=== PATIENT | female | born 1940 | race Caucasian/White ===

== ENCOUNTER 2016-09-16 16:19 | Inpatient (IN) ==
[2016-09-16] MEDS ORDERED: NS 1,000 ML IV SCH ×2 (16:30→22:39)
[2016-09-16] MEDS ORDERED: CLINDAMYCIN 900 MG/NS 900 MG/50 ML IVPB IV ONE (16:30)
[2016-09-16] MEDS ORDERED: VANCOMYCIN 1 GM/NS 1 GM/250 ML IVPB IV ONE (16:30)
[2016-09-16 18:33] LABS: MANUAL DIFF NEEDED? NO
[2016-09-16 18:39] LABS: BASO% 0.2 % (0.0-0.8); EOS% 1.2 % (0.0-10.0); HEMATOCRIT 30.5 % (37.0-47.0); HEMOGLOBIN 9.8 g/dL (12.0-16.0); IMM GRAN# 0.03 X1000 (0.0-0.04); IMM GRAN% 0.4 % (0.0-0.5); LYMPH# 1.61 X1000 (1.2-3.4); LYMPH% 18.9 % (20.5-51.1); MCH 30.6 PG (27-31); MCHC 32.1 g/dL (33-37); MCV 95.3 FL (81-99); MONO# 1.08 X1000 (0.11-0.59); MONO% 12.7 % (1.7-9.3); MPV 10.5 FL (7.4-10.4); NEUT% 66.6 % (42.2-75.2); PLT 161 X1000 (130-400)
--- NOTE | 2016-09-16 18:49 | PROVIDER DOCUMENTATION ---
HPI-Rash/Wound/ReCheck - General Chief Complaint: Return/Recheck Stated Complaint: RECHECK/CAT BITE Time Seen by Provider: 09/16/16 16:26 Source: patient, old records Allergies/Adverse Reactions: Allergies Allergy/AdvReac Type Severity Reaction Status Date / Time egg Allergy DIARRHEA Verified 09/16/16 16:39 Home Medications: Home Medication List Medication Instructions Recorded Confirmed Last Taken Type Allopurinol 300 mg PO HS 03/26/14 09/16/16 09/15/16 00:00 History Atenolol 100 mg PO HS 03/26/14 09/16/16 09/15/16 00:00 History Furosemide [Lasix] 20 mg PO HS 03/26/14 09/16/16 09/15/16 00:00 History Metformin [Glucophage] 500 mg PO HS 03/26/14 09/16/16 09/15/16 00:00 History Naproxen 500 mg PO BID PRN #15 tablet 03/26/14 09/16/16 Unknown Rx Nifedipine [Nifedical Xl] 60 mg PO HS 03/26/14 09/16/16 09/15/16 00:00 History Potassium Gluconate [Potassium] 20 mg PO HS 03/26/14 09/16/16 09/15/16 00:00 History Simvastatin 40 mg PO HS 03/26/14 09/16/16 09/15/16 00:00 History Amoxicillin/Pot Clavulanate 875 mg PO Q12HR #14 tablet 09/14/16 09/16/16 08:45 Rx [Augmentin] - History of Present Illness-Dermatology Nature of Presenting Problem: This pt presents today c complaints of worsening symptoms following a cat bite to the R hand 3 days ago. She was bitten by a stray cat and seen in the ER that day. She was started on rabies prophylaxis and Augmentin. Since that time the area has almost doubled in size due to swelling and erythema is beginning to spread beyond the initially demarcated area. No erythematous streaking in the extremity. No fever, chills, n/v/d. No other issues or complaints. Location: reports: upper extremity (R) Quality: reports: painful Severity: reports: moderate Onset/Duration: reports: 3 days ago Timing: reports: still present, getting worse Context/Associated Symptoms: reports: other (cat bite) Similar Symptoms Previously?: Yes Recently seen or treated by another doctor?: Yes - Recheck Treated days ago.: 3 Previous Treatment: other (see hpi) Antibiotics given: prescription Symptoms since procedure:: reports: pain, redness Review of Systems - Adult - REVIEW OF SYSTEMS - ADULT Constitutional: reports: no symptoms reported. denies: chills, fever Eyes: reports: no symptoms reported. denies: discharge, dry eyes Ears, Nose, Mouth & Throat: reports: no symptoms reported. denies: ear discharge, ear pain Cardiovascular: reports: no symptoms reported. denies: chest pain, edema Respiratory: reports: no symptoms reported. denies: chronic cough, cough Gastrointestinal: reports: no symptoms reported. denies: abdominal pain, hematemesis Genitourinary: reports: no symptoms reported. denies: dysuria, discharge Musculoskeletal: reports: see HPI. denies: bone pain, back pain Integumentary: reports: see HPI. denies: hives, hair loss Neurological: reports: no symptoms reported. denies: ataxia, dizziness/vertigo Psychiatric: reports: no symptoms reported. denies: anxiety, anti-depressant use Endocrine: reports: no symptoms reported Hematologic/Lymphatic: reports: no symptoms reported Allergic/Immunologic: reports: no symptoms reported All Other Systems: Reviewed and Negative Past History - Adult - PAST MEDICAL HISTORY-ADULT Review of Records: reports: Old Records Reviewed, Nursing Assessment Review, Medications Reviewed, Social history reviewed & non-contributory. Major Childhood Illnesses: reports: denies history Cardiovascular: reports: HTN, hyperlipidemia Respiratory: reports: denies history Gastrointestinal: reports: denies history Obstetrical/Gynecological: reports: denies history Genitourinary: reports: denies history Musculoskeletal: reports: denies history Neurological: reports: denies history Psychiatric: reports: denies history Endocrine/Immune: reports: Diabetes Other Conditions: reports: denies history - PRIOR SURGERIES/PROCEDURES Surgical/Procedure History: reports: hysterectomy - PRIOR HOSPITALIZATIONS Prior Hospitalizations: reports: for other non-related - IMMUNIZATION STATUS Childhood Immunizations: See Nurse Assessment Flu Vaccine: See Nurse Assessment - FAMILY HISTORY Family History: reviewed, not pertinent Physical Exam-General - PHYSICAL EXAM-ADULT Initial Vital Signs Reviewed: Yes - CONSTITUTIONAL General Appearance: appears well, alert, no apparent distress - EYES Eyes: PERRL/EOMI, pink conjunctivae - HEAD, EARS, NOSE, MOUTH & THROAT HENMT: normocephalic/atraumatic, moist mucous membranes, normal ENT inspection - NECK Neck: supple, normal inspection - RESPIRATORY Respiratory: chest non-tender, lungs clear, normal breath sounds - CARDIOVASCULAR Cardiovascular: normal peripheral pulses, regular rate, rhythm - GASTROINTESTINAL (ABDOMEN) Abdominal Exam: normal bowel sounds, non tender, soft - LYMPHATIC Lymphatic: no adenopathy - MUSCULOSKELETAL Back Exam: normal inspection, no CVA tenderness, no vertebral tenderness Extremity: normal range of motion, erythema, swelling, tenderness. negative: pulse deficit, pedal edema - SKIN Integumentary: normal turgor, warm/dry, erythema, swelling, tenderness - NEUROLOGIC Neurologic: grossly normal, no motor/sensory deficits. negative: facial droop, focal weakness, motor weakness, sensory deficit - PSYCHIATRIC Psych/Mental Status: normal mood/affect, normal thought content, normal thought process, oriented x 3 Progress - PLAN OF CARE/RESULTS Progress/Plan/Lab Results: Vital Signs - 8 hr 09/16/16 16:22 Temperature 98.0 F Pulse Rate 78 Respiratory Rate 20 Blood Pressure 100/66 O2 Sat by Pulse Oximetry 99 Laboratory Results - last 24 hr 09/16/16 09/16/16 09/16/16 18:22 18:22 18:22 WBC 8.50 RBC 3.20 L Hgb 9.8 L Hct 30.5 L MCV 95.3 MCH 30.6 MCHC 32.1 L RDW Std Deviation 15.2 H Plt Count 161 MPV 10.5 H Immature Gran % (Auto) 0.4 Neut % (Auto) 66.6 Lymph % (Auto) 18.9 L Swain % (Auto) 12.7 H Eos % (Auto) 1.2 Baso % (Auto) 0.2 Immature Gran # (Auto) 0.03 Neut # (Auto) 5.66 Lymph # (Auto) 1.61 Swain # (Auto) 1.08 H Eos # (Auto) 0.10 Baso # (Auto) 0.02 Sodium 142 Potassium 4.1 Chloride 102 Carbon Dioxide 25 Anion Gap 15 BUN 20 Creatinine 1.0 H Estimated GFR/1.73 m2 54 BUN/Creatinine Ratio 20 Glucose 113 H Calculated Osmolality 287 Calcium 8.9 Total Bilirubin 0.39 AST 22 ALT 15 Alkaline Phosphatase 65 Total Protein 6.9 Albumin 4.1 Globulin 2.8 Albumin/Globulin Ratio 1.5 Plasma Lactate 1.3 Orders Category Date Time Status Saline Loc NOW Care 09/16/16 16:28 Active BLOOD CULTURE [BLDCUL] Stat Lab 09/16/16 18:22 Results CBC WITH ELECTRONIC DIFF [HEME] Stat Lab 09/16/16 18:22 Completed COMPREHENSIVE METABOLIC PANEL [CHEM] Stat Lab 09/16/16 18:22 Completed LACTATE, PLASMA [CHEM] Stat Lab 09/16/16 18:22 Completed 0.9% Sodium Chloride Inj [Ns] 1,000 ml Med 09/16/16 16:30 Active IV 75 mls/hr Clindamycin 900 mg/Ns Med 09/16/16 16:30 Discontinued 900 mg in 50 ml IV NOW Vancomycin 1 gm/Ns Med 09/16/16 16:30 Discontinued 1 gm in 250 ml IV NOW Will admit for failed outpt tx. Discussed c Dr. Johnson and he is in agreement. Result Diagrams: 09/16/16 18:22 09/16/16 18:22 - CONSULTS/PCP/HOSPITALIST Notification #1 *Consult/PCP/Hospitalist*: Dr. Stephenson Time Discussed: 19:05 Consult Disposition: Admit Departure - Departure Date of Disposition Decision: 09/16/16 Time of Disposition Decision: 19:05 DIAGNOSIS: Failure of outpatient treatment Cat bite of hand Qualifiers: Encounter type: subsequent encounter Laterality: right Qualified Code(s): S61.451D - Open bite of right hand, subsequent encounter; W55.01XD - Bitten by cat, subsequent encounter Disposition: ADMITTED INPATIENT 09 Certified Medical Emergency: Emergent Condition: Stable Referrals and Follow-Ups: Rajesh Taylor [Primary Care Provider] - - Critical Care Note This patient required my direct & personal management of CC.: No Attestation - Physician/ SANJANA Attestation Patient care was provided by Advanced Practice Provider:: Yes Advanced Practice Provider:: Axel Mccann Advanced Practice Provider documentation review:: The Mid-level provider documentation, treatment plan and medical decision making was reviewed by the physician who agrees with all treatment and medical decision making by the MLP. The physician spent face to face time with patient:: Yes Advanced Practice Provider documentation review:: The physician spent face to face time with this patient and agrees with all MLP documentation, treatment, and medical decision making by the MLP. See provider notes for further information.
[2016-09-16 18:54] LABS: ALBUMIN 4.1 g/dL (3.5-5.0); CALCIUM 8.9 mg/dL (8.8-10.2); POTASSIUM 4.1 mmol/L (3.5-5.1); TOTAL BILIRUBIN 0.39 mg/dL (0.20-1.00); TOTAL PROTEIN 6.9 g/dL (6.3-8.3)
[2016-09-16] MEDS ORDERED: ADALAT CC PO SCH (21:00)
[2016-09-16] MEDS ORDERED: ZOFRAN IV PRN (21:21)
[2016-09-16] MEDS ORDERED: TYLENOL PO PRN (21:21)
[2016-09-16] MEDS ORDERED: VANCOMYCIN IV PER PHARMACY MISC SCH (22:45)
[2016-09-16 23:46] LABS: INR 0.98; PROTIME 10.3 Seconds (9.2-11.7); PTT 28.3 Seconds (22.0-36.0)
[2016-09-16] MEDS: TENORMIN PO SCH (23:59)
[2016-09-16] MEDS: NORCO-5 PO PRN (23:59)
[2016-09-17] MEDS ORDERED: VANCOMYCIN IV ONE (01:00)
[2016-09-17] MEDS ORDERED: NS IV ONE (01:00)
--- NOTE | 2016-09-17 03:34 | HISTORY AND PHYSICAL ---
DATE AND TIME OF HISTORY AND PHYSICAL: 09/16/2016 at 20:30. CHIEF COMPLAINT: Recheck of a cat bite to the right forearm. HISTORY OF PRESENT ILLNESS: Ms Keane is s a 75-year-old female, who was seen in the ER on 09/14/2016. She states that approximately 1:30 that day she was bit by a cat while she was attempting to feed it. She reports that the cat he is not her pet, that it is a stray cat that comes and goes from time to time. She is not aware of it having an m48/m60 tank driver and does not know if the patient has been vaccinated for rabies. The patient presented with a puncture wound to the top of her right hand as well as a 2nd more superficial puncture wound on her ulnar side of her hand. She was seen in the ER that afternoon just shortly after the bite occurred. She was given a prescription for Augmentin. She was also given the rabies vaccination as well as immunoglobulin. She was discharged and instructed to come back for a series of rabies vaccines on day 3, 7, 14 and 28. The patient states that since that time she has continued to have increased swelling, warmth, redness and pain in her right hand which has progressively gotten worse and is starting to advance up her arm. She also now reports that she has joint pain as well and does have some decreased mobility in the fingers, hand and wrist. She does have good capillary refill distal to the cat bite. It is less than 3. Right radial pulse is +3. She is able to move her fingers, hand and wrist though as previously mentioned she does have decreased mobility. She also has good sensation in this hand as well. The patient is afebrile. She denies any fever , body aches or chills. They did draw labs in the ER. White blood cell count is within normal limits at 8.5. Plasma lactate is 1.3. She denies any dizziness, lightheadedness, headache, chest pain, shortness of breath, abdominal pain, nausea, vomiting, diarrhea, or constipation. She reports that her last bowel movement was yesterday. She denies any hematochezia or melena. She denies any dysuria or urinary frequency and denies any pain, numbness, tingling or swelling in extremities except for above abnormalities noted to right upper extremity. At this time we will admit the patient for further treatment and evaluation of her right upper extremity cellulitis. Also , the patient was asked when she received her last tetanus shot and she reported that she received one when she was seen in the ER on September 14, 2016 though this was never ordered nor was documented under in the MAR that it was given so we will likely go ahead and cover her with this as well. REVIEW OF SYSTEMS: A 12 point review of systems was conducted with the patient and all were negative except for pertinent positives mentioned in above HPI. PAST MEDICAL HISTORY: 1. Hypertension. 2. Hyperlipidemia. 3. Diabetes mellitus type 2. 4. Gout. PAST SURGICAL HISTORY: 1. Hysterectomy. 2. Bilateral cataract surgery. SOCIAL HISTORY: The patient denies any past or present alcohol, tobacco or illicit drug use. She lives in [place], [place], and still currently works at [employer] 3 days a week. FAMILY HISTORY: Positive for her mother having a history of a brain tumor, breast cancer and stroke. She is unaware of her father having any medical problems. She has 1 brother who recently secondary to pancreatic cancer and also has 1 sister who has had breast cancer as well. ALLERGIES: Patient reports allergies to eggs stating they cause her to have diarrhea. HOME MEDICATIONS: Metformin 1000 mg p.o. b.i.d., potassium chloride 20 mEq p.o. daily, naproxen 500 mg p.o. b.i.d. p.r.n. for pain, Singulair 10 mg p.o. daily, Augmentin 875 mg p.o. q.12 hours, simvastatin 40 mg p.o. at bedtime, Lasix 20 mg p.o. at bedtime, atenolol 100 mg p.o. at bedtime, allopurinol 300 mg p.o. at bedtime. DIAGNOSTIC DATA: Laboratory results: White blood cell count 8.5, hemoglobin 9.8, hematocrit 30.5, platelet count 161,000. PT 10.3, INR 0.98, PTT 28.3. Sodium 142, potassium 4.1, chloride 102, bicarb 25, creatinine 1.0, BUN 20 with an estimated GFR of 54, glucose 113 , calcium 8.9. Liver function tests are within normal limits. Plasma lactate 1.3. EKG showed normal sinus rhythm at a rate of 76 with a QTc of 459. PHYSICAL EXAMINATION: VITAL SIGNS: Temperature 98 degrees, heart rate 75, respirations 18, blood pressure 165/61, oxygen saturation is 97% on room air. GENERAL: Ms Keane is a very pleasant 75-year-old female who is resting comfortably in the ER stretcher. She was in no acute distress. She was awake, alert and able to answer all questions appropriately. HEENT: Head is atraumatic, normocephalic. Pupils are equal, round, reactive to light, were 3 mm bilaterally and brisk. Sclerae white. No lesions noted. Subconjunctivae were pink. Oral mucosa is moist. Oropharynx is clear. NECK: Supple. Trachea midline. CARDIOVASCULAR: Patient has normal S1, S2. No murmurs, gallops, rubs appreciated. Regular rate and rhythm. PULMONARY: Patient has symmetrical chest expansion bilaterally. Lung sounds are clear to auscultation in bilateral lung junior. ABDOMEN: Soft, nontender, nondistended. Bowel sounds are present in all 4 quadrants, were normoactive. EXTREMITIES: The patient does have swelling, warmth and erythema noted to the right upper extremity extending from her hand proximally up the arm to just below the elbow. There is a small puncture wound noted on the back of the hand as well as the ulnar side of the hand. There is no drainage noted at this time. There is a scab noted to both wounds. All other extremities are within normal limits. No other cyanosis, clubbing or edema noted. Pulse, motor and sensory are intact in all extremities. Capillary refill was less than 3. Pedal pulses 3+ bilaterally. INTEGUMENTARY: The patient's skin is pink, warm, dry, and intact. No other lesions or sores noted except for abnormalities previously mentioned in above extremities exam for her right upper extremity. NEUROLOGICAL: Patient is alert and oriented to person, place, time, situation. Cranial nerves 2- 12 are grossly intact. ASSESSMENT AND PLAN: 1. Right upper extremity cellulitis secondary to cat bite. Blood cultures have been obtained. We have placed the patient on coverage with Zosyn as well as vancomycin. We have marked the patient's skin in the area of erythema for further assessments. We will continue her complete series of rabies vaccine on day 3, 7, 14 and day 28. She did receive the rabies vaccine initially and immunoglobulin in the ER on 09/14/2016. We will also give her tetanus injection as well. 2. Hypertension. We will continue her medications, atenolol and Adalat Controlled Release. 3. Hyperlipidemia. We will continue her Zocor. 4. Diabetes mellitus type 2. The patient's creatinine was slightly elevated at 1.0. We will hold her metformin at this time and just place her on sliding scale low-dose lispro insulin and continue to follow. The patient will be placed on the medical floor. She will have vital signs every 8 hours. DVT prophylaxis will be provided with SCDs. We will do fingerstick blood sugars a.c. and at bedtime. She will be on a diabetic diet. Further orders and recommendations pending hospital course, diagnostic studies and physician evaluation. Dictated by BLAIR Deshpande for Christiano Stephenson MD cc: Christiano Stephenson MD MTDD
[2016-09-17] MEDS: ZOSYN 3.375 GM/NS 3.375 GM/50 ML IVPB IV SCH ×5 (03:55→23:00)
[2016-09-17] MEDS: NORCO-5 PO PRN ×3 (05:51→23:00)
--- NOTE | 2016-09-17 05:52 | EKG Report ---
Test Performed on : 09/16/2016 8:59:10 PM Test Reason : Right Forearm Cellulitis Blood Pressure : / mmHG Vent. Rate : 076 BPM Atrial Rate : 076 BPM P-R Int : 200 ms QRS Dur : 074 ms QT Int : 408 ms P-R-T Axes : 062 044 031 degrees QTc Int : 459 ms Normal sinus rhythm. Normal ECG When compared with ECG of 26-MAR-2014 10:55, No significant change was found Unconfirmed Result
[2016-09-17] MEDS: HUMALOG SUBQ SCH ×4 (06:06→22:49)
[2016-09-17 06:19] LABS: MANUAL DIFF NEEDED? NO
[2016-09-17 07:12] LABS: CALCIUM 8.5 mg/dL (8.8-10.2); POTASSIUM 4.2 mmol/L (3.5-5.1)
[2016-09-17 08:51] LABS: BASO% 0.2 % (0.0-0.8); EOS# 0.09 X1000 (0.0-0.7); EOS% 1.4 % (0.0-10.0); HEMATOCRIT 28.2 % (37.0-47.0); HEMOGLOBIN 9.1 g/dL (12.0-16.0); IMM GRAN# 0.02 X1000 (0.0-0.04); IMM GRAN% 0.3 % (0.0-0.5); LYMPH# 1.61 X1000 (1.2-3.4); MCH 31.3 PG (27-31); MCHC 32.3 g/dL (33-37); MCV 96.9 FL (81-99); MONO# 0.81 X1000 (0.11-0.59); MONO% 12.6 % (1.7-9.3); MPV 11.3 FL (7.4-10.4); NEUT% 60.5 % (42.2-75.2); PLT 150 X1000 (130-400); RBC 2.91 XMIL (4.2-5.4)
[2016-09-17] MEDS ORDERED: IMOVAX RABIES VACCINE IM ONE (09:00)
[2016-09-17] MEDS ORDERED: BOOSTRIX VACCINE IM ONE (09:00)
--- NOTE | 2016-09-17 13:53 | PROGRESS NOTE ---
DATE: 09/17/2016 SUBJECTIVE: Diya, 75-year-old was admitted on 09/16/2016. She had a recheck of her cat bite right forearm, 75-year-old who has been seen in the emergency room on 09/14/2016 approximately 1:30. She was bit by a cat while she was attempting to feed it. She reports that the cat he is not her pet and it is a stray cat that comes and goes from time to time not aware of having any owner manager, does not know if patient has been vaccinated for rabies. Patient presented with puncture wound to the top of her right hand as well as 2nd more superficial puncture wound to the ulnar side of her hand, seen in ER that afternoon just shortly after the cat bite occurred. Given a prescription for Augmentin, given rabies vaccination as well as immunoglobulin. She was discharged and instructed to come back for a series of rabies vaccinations day 3, 7, 14 and 28. Patient states that since that time she continued have increased swelling, warmth and redness and pain in the right hand, indeed had more swelling was admitted for deep tissue infection and cellulitis. Did not have much adenopathy at the elbow or in the right axilla. She had areas of erythema on the hand extending up to the medial forearm, she states is still pretty tender. Has not had much improvement in that but the redness has gone down. Remains afebrile. OBJECTIVE: Vital signs: Temperature 97.7 degrees, pulse 64, respirations 18, blood pressure 139/55. HEENT: Pupils are equal, round. Lungs: Are clear in all lung junior. Cardiovascular: Regular rhythm and rate without murmur or S3. Abdomen: Soft. Skin: Warm and dry. Urine output 1400 mL. LABORATORY: Review of lab from yesterday white count 6450, hematocrit 28, platelet count 150,000. Sodium 144, potassium 4.2, chloride 104, BUN 17, creatinine 1.0. ASSESSMENT AND PLAN: 1. Right upper extremity cellulitis secondary cat bite. Blood cultures have been obtained. Placed on coverage with Zosyn and vancomycin. Areas of erythema little better. She needs to continue her series of rabies vaccinations, will ask Dr. Nichole to advise as well. 2. Hypertension. Blood pressure well controlled. 3. Hyperlipidemia. 4. Diabetes mellitus type 2. Sugars under good control. cc: Chun Anderson MD
--- NOTE | 2016-09-17 15:59 | Diag Imaging Result Doc PS360 ---
EXAM: MRI UPPER EXT W/WO CONT-RIGHT - 09/17/2016 HISTORY: infection due to cat bite TECHNIQUE: Images are obtained prior to and following Omniscan administration. COMPARISON: None. FINDINGS: There is mild edema at extensor tendon sheaths over the dorsal wrist. There is enhancement this location following Omniscan administration. This is suspicious for inflammation (tenosynovitis), which may be infectious. In the appropriate clinical setting, noninfectious inflammatory process would also be a consideration. There is no bone marrow edema identified. There are mild degenerative changes. IMPRESSION: Evidence of inflammation at extensor tendon sheaths over dorsal wrist. The possibility of infectious tenosynovitis cannot be excluded. There is no evidence of osteomyelitis. Electronically signed by Jose Mckeon 09/17/2016 3:57 PM
[2016-09-17] MEDS: TENORMIN PO SCH (21:18)
[2016-09-17] MEDS: ZOCOR PO SCH (21:18)
--- NOTE | 2016-09-17 22:08 | CONSULTATION ---
DATE OF CONSULTATION: 09/17/2016 CONCLUSION: The patient suffered a cat bite to her right hand. The bite was near the junction of the hand and wrist on the dorsal part of the hand. The patient has swelling. I think overall the swelling may be decreasing and by evidence of the fact that she has wrinkling of her skin. The skin does not seem to be erythematous but I have not seen it before but the patient did say there was erythema present on her hand and wrist. I am concerned that the patient has a lot of pain when I try to move her fingers and I wonder if there could be a purulent tenosynovitis present. RECOMMENDATIONS: I agree with the excellent care provided by Dr. Anderson. I agree with treating with vancomycin and Zosyn. I agree with giving her a diphtheria tetanus acellular pertussis immunization. I agree with Dr. Anderson to give the patient rabies immune globulin as well as the rabies vaccine. DISCUSSION: The patient approximately 4-5 days ago, was bitten on her hand near the wrist. This was a stray cat that has not had any immunizations. The patient was cutting up food which she was going to give to the cat and she said the cat jumped up and bit her on the hand. Her laboratory studies show a CBC with a white count of 6450, hemoglobin 9.1 and platelet count 150,000. Creatinine is 1. GFR is 54. Liver function studies are normal. Blood cultures are pending. PAST MEDICAL HISTORY/REVIEW OF SYSTEMS: Eyes and ears: She denies difficulty hearing or seeing. Neck: No stiffness. Respiratory: No cough or shortness of breath. Cardiac: No chest pain or palpitations. GI: No nausea, vomiting or diarrhea. : No dysuria or flank pain. Bones, joints, muscles: See present illness for the description of the cat bite. She is not complaining of pain in the area except where she was bitten by the cat. Neurologic: No history of seizures or unilateral loss of motor or sensory function. Integument: No rashes. Hematologic: No history of anemia or bleeding tendency. The remainder of the patient's review of systems was completed and was negative SUPERVISOR CYTOLOGY HISTORY: She is a 5, para 4, AB 1. She has had a hysterectomy/ PREVIOUS HOSPITALIZATIONS AND OPERATIONS: She has had labor and deliveries, a miscarriage, a hysterectomy and removal of colon polyps. MEDICAL DISEASES: Positive for diabetes mellitus, hypertension, hyperlipidemia and colon polyps, gout. INFECTIOUS DISEASE HISTORY: Positive for UTI. FAMILY HISTORY: Positive for stroke, cancer, diabetes mellitus and myocardial infarction. [place]IAL H[place]ORY[place] She does not smoke cigarettes, drink alcoholic beverages or abuse drugs. She is a . She lives alone. She does not have any pets at home. She has an allergy to egg. The patient works at [employer]. HOME MEDICATIONS: Include she is on metformin, potassium, naproxen, Singulair, Augmentin, simvastatin, furosemide, atenolol and allopurinol. PHYSICAL EXAMINATION: Vital Signs: Temperature is 97.7 degrees, pulse 64, respirations 14, blood pressure 139/55. Patient's weight is listed as 160 pounds. Generally: This is an obese, elderly female. She is in no acute distress. Head eyes, ears, nose, and throat: She can hear my spoken words. She can see near objects. No drainage noted from the nose or ears. Patient is wearing dentures. She does not have any white coating to the tongue. Neck: No meningismus. Thorax: No increased AP diameter. Lungs: Clear to auscultation. Cardiovascular: Heart rate is regular. Peripheral pulses are palpable. Abdomen: Soft and nontender. Extremities: The patient has bilateral leg edema. There is an area on the patient's dorsum of the hand right where the hand and wrist meet. There is a puncture percy due to the cat bite. The site is not purulent and it is not erythematous. Neurologic: Patient is alert. She can move her extremities. There is no tremor. Her sensation is intact to touch. Her memory, as regarding her medical history is intact. Integument: No rash noted. Thank you for the consult. cc: MD Chun Yu MD
[2016-09-18] MEDS: ZOSYN 3.375 GM/NS 3.375 GM/50 ML IVPB IV SCH ×3 (04:46→21:23)
[2016-09-18] MEDS: HUMALOG SUBQ SCH ×4 (06:20→21:12)
--- NOTE | 2016-09-18 09:57 | PROGRESS NOTE ---
DATE: 09/18/2016 PRESENT ILLNESS: The patient had a cat bite to her right arm. As a result, she has cellulitis, and on MRI there is a possibility of tenosynovitis. MEDICATIONS: The patient is receiving a combination of vancomycin and Zosyn. This is day 2 of treatment with both of those agents. The patient already has had tetanus immunization. She has gotten rabies immune globulin and also has been started on rabies vaccination. Medications are as mentioned above. PHYSICAL EXAMINATION: Vital Signs: Temperature is 97.9 degrees, pulse 63, respirations 14, blood pressure 146/66. General: This is a fairly healthy-appearing, elderly female. She is in no acute distress. Lungs: Clear to auscultation. Cardiovascular: Regular heart rate. Abdomen: Soft and nontender. Extremities: The patient's right arm is less swollen. It is noted by wrinkling in the skin. Also the arm is not erythematous, and today the patient is able to move her fingers much better without pain, thus making diagnosis of tenosynovitis unlikely. The bite site on the dorsum of her hand is also clearing. It is not erythematous or fluctuant. LAB AND X-RAY: There is no new lab. Blood cultures remain sterile. The patient had an MRI of her arm yesterday, and it showed as mentioned above the possibility of tenosynovitis. ASSESSMENT AND PLAN: The patient told me she was seen by orthopedics yesterday and they told her to continue with the antibiotics. They told her that they did not think that surgery was indicated at this time. I certainly agree with what they are saying especially in view of the fact that the patient's hand looks much better today. So, we will keep going with vancomycin and Zosyn. I tried to discuss with the patient about going home and continuing the antibiotics. She told me that she lives alone and it is going to be difficult for her to give herself the antibiotics because her right arm where the infection is cannot be used well because of its being so swollen. Therefore, for now we will probably be keeping the patient in the hospital and continuing her on her intravenous antibiotics until such time that we can shift her over to oral antibiotics. COMORBIDITIES: The patient's comorbidities: The patient is elderly. She also is a diabetic. cc: MD Chun Yu MD
--- NOTE | 2016-09-18 11:53 | CONSULTATION ---
DATE OF CONSULTATION: 09/18/2016 CHIEF COMPLAINT: Right wrist cat bite. HISTORY OF PRESENT ILLNESS: Arina Keane is a 75-year-old female, who was bitten by a cat last . It got progressively worse until Saturday she presented to the emergency room. She has been on IV antibiotics since 09/16. Dr. Moreno Nichole was concerned due to her inability to flex and extend her fingers as she might have tenosynovitis of her extensor tendons. PAST MEDICAL HISTORY, PAST SURGICAL HISTORY, MEDICINES AND ALLERGIES: See admission history and physical. PHYSICAL EXAM: Reveals a well-developed well-nourished female. She is alert, oriented, and cooperative to exam. She has some obvious cellulitis of her hand with erythema, but there is wrinkling of the skin suggesting that the antibiotics are improving the infection. I do not feel any fluctuance. While she does have pain with flexion and extension of her fingers, it does not appear to be severe. I do not feel she has tenosynovitis at this time. LABS: Her laboratory values include a white count of 6000. Her hematocrit is low at 28%. ASSESSMENT: Right hand cellulitis. PLAN: We will continue to monitor her. If it gets worse, we can consider irrigation and debridement of her extensor tendon sheath. However, at this point I do not feel that there is a cause for surgical intervention. cc: MD Chun Will MD
[2016-09-18] MEDS ORDERED: VANCOMYCIN 1,250 MG in NS 250 ML IV SCH (13:00)
--- NOTE | 2016-09-18 16:31 | PROGRESS NOTE ---
DATE: 09/18/2016 SUBJECTIVE: She feels the hand is maybe a little better, a little less tender, but still very touchy and swollen. OBJECTIVE: Vital Signs: Temperature 97.6, pulse 66, respirations 14, blood pressure 171/64. CVP less than 6 cm. Lungs: Clear in all lung junior. Cardiovascular: Regular rhythm and rate, without murmur or S3. Abdomen: Soft. Skin: Warm and dry. LABORATORY STUDIES: Urine output 1200 mL. Blood sugar 145, 163. ASSESSMENT AND PLAN: 1. I appreciate Dr. Nichole' help. She had an upper extremity MRI done yesterday. Evidence of inflammation of extensive tendon sheaths over dorsal wrist, possibility of infectious tenosynovitis cannot be excluded. No evidence of osteomyelitis. Dr. Crowell has evaluated and does not see anything surgical at this point. Continue present antibiotics, feels she has right hand cellulitis and synovitis. We can consider irrigation and debridement of extensor tendon sheath. However, at this point do not feel that there is a cause for surgical intervention. 2. Dr. Nichole also evaluated cat bite on her right hand, near the junction of the hand and the wrist and dorsal part of the hand, with some swelling. I feel like it is decreasing. Will continue vancomycin and Zosyn. We did give her a diphtheria tetanus, a pertussis immunization as well. I think clinically she is improving. Continue to elevate the hand. 3. Diabetes mellitus type 2. Sugars well-controlled. 4. Blood pressure, well-controlled. cc: Chun Anedrson MD
[2016-09-18] MEDS: NORCO-5 PO PRN (17:45)
[2016-09-18] MEDS: ZOCOR PO SCH (21:23)
[2016-09-18] MEDS: TENORMIN PO SCH (21:23)
[2016-09-19] MEDS: ZOSYN 3.375 GM/NS 3.375 GM/50 ML IVPB IV SCH ×4 (04:39→22:07)
[2016-09-19] MEDS: HUMALOG SUBQ SCH ×4 (06:12→20:41)
[2016-09-19] MEDS: NORCO-5 PO PRN ×2 (07:38→18:57)
--- NOTE | 2016-09-19 09:06 | PROGRESS NOTE ---
DATE: 09/19/2016 PRESENT ILLNESS: The patient has suffered a cat bite to the dorsum of her right arm. She has had swelling, but it appears that the swelling has gone down. Also she is better able to move her fingers suggesting that she does not have a tenosynovitis or, if she did, it is getting better also. MEDICATIONS: The patient is receiving a combination of vancomycin and Zosyn. This is the third day of treatment with both of these agents. The patient is on schedule to get rabies vaccination 2 more times to bring it to a total of 4 different injections plus the infusion of anti rabies immunoglobulin, plus she received anti rabies immunoglobulin directly to the wound and also a separate site. PHYSICAL EXAMINATION: Vital Signs: Temp 98.3 degrees, pulse is 74, respirations are 14, blood pressure 183/63. General: This is a fairly healthy-appearing, elderly female. She is in no acute distress. Lungs: Clear to auscultation. Cardiovascular: Heart rate is regular. Abdomen: Soft and nontender. Extremities: The right arm continues to have a decrease in swelling. There still is some on the dorsum of the hand, but even that is getting less. Patient also is able to move her fingers further and with less pain. LAB AND X-RAY STUDIES: The patient does not have any lab for today and does not have any x-ray for today. ASSESSMENT AND PLAN: The patient does have cellulitis of the arm. I think we all feel and even the patient feels that it is getting better at this time. My plan is to continue with her intravenous antibiotics. COMORBIDITIES: The patient's comorbidities include first of all the patient is elderly and also she has diabetes mellitus. I plan also to obtain a creatinine tomorrow to check her kidney function now that she is on vancomycin. cc: MD Chun Yu MD
--- NOTE | 2016-09-19 12:49 | PROGRESS NOTE ---
DATE: 09/19/2016 SUBJECTIVE: Ms. Keane'sebastian hand is a little better. It is still very tender. It is more confined to the top of her hand and the ulnar side of the dorsum of the hand. She is still elevating it. OBJECTIVE: Vital signs: She remains afebrile. Pulse 66, respirations 14, blood pressure 183/63. Lungs: Clear in all lung junior. Cardiovascular: Regular rhythm and rate without murmur or S3. Abdomen: Soft. Skin: Warm and dry. Intake and output: Urine output 2400 mL. LAB: Blood sugar 163, 186, 242. Lab reviewed from the . Blood sugars 166, 153, 119. ASSESSMENT AND PLAN: 1. Suffered a cat bite on the dorsum of the right hand. Still some swelling but it is improving progressively. She is able to move her fingers without any trouble but she is very tender over the hand, so still an element of cellulitis. Continue vancomycin and Zosyn. This is the 3rd day of treatment. She is on the schedule to get rabies vaccinations 2 more times to bring a total of 4 different injections plus infusion of antirabies immunoglobulin. She received antirabies immunoglobin directly to the wound. Also a separate site. Continue to elevate the hand. 2. Diabetes mellitus type 2. Sugar uncontrolled. 3. Blood pressure. Continue to follow. A little bit elevated today. I am not going to make any change in her blood pressure medicines at this point. She is on Tenormin 100 mg at bedtime. cc: Chun Anderson MD
--- NOTE | 2016-09-19 17:33 | PROGRESS NOTE ---
DATE: 09/19/2016 SUBJECTIVE: Ms. Schafer is a 75-year-old female who was bitten by a cat last and she has been on IV antibiotics since she was admitted on 09/16/2016. She has no new complaints and she states that she has had increased range of motion in her hand, although she still has pain with motion. OBJECTIVE: General: She is well developed, well nourished, female. She is alert and oriented and cooperative with the examination. Vital Signs: Stable. She is afebrile. She has swelling on the dorsal side of her hand, but she had increased range of motion. She has pain with flexion and extension of her fingers, but it has improved and she is able to slightly flex and extend her wrist as well. ASSESSMENT: Right hand cellulitis. PLAN: We will continue to monitor. We will continue to have her on IV antibiotics per Dr. Nichole. Dictated by CARLOS Ramirez for Chung Crowell MD cc: CARLOS Ramirez MD Allen J. Schmidt, MD
[2016-09-19] MEDS: TENORMIN PO SCH (20:41)
[2016-09-19] MEDS: ZOCOR PO SCH (20:41)
[2016-09-20] MEDS: VANCOMYCIN 1,400 MG in NS 250 ML IV SCH (03:43)
[2016-09-20] MEDS: ZOSYN 3.375 GM/NS 3.375 GM/50 ML IVPB IV SCH ×3 (06:45→18:42)
[2016-09-20] MEDS: HUMALOG SUBQ SCH ×5 (07:26→22:12)
[2016-09-20] MEDS: NORCO-5 PO PRN ×2 (07:52→18:41)
--- NOTE | 2016-09-20 08:18 | PROGRESS NOTE ---
DATE: 09/20/2016 SUBJECTIVE: Katiuska Painter is a 75-year-old female, who is hospital day 4 from a right cellulitis, being treated with IV antibiotics. She also received direct rabies injections x10 on the dorsum of her wrist and she complains as this is being the reason for her wrist being sore. OBJECTIVE: She is a well-developed, well-nourished female. She is alert and cooperative on exam. The swelling seems to be slowly decreasing. There is wrinkling of the skin. She does have tenderness over the dorsal wrist, but she can flex her fingers. ASSESSMENT: Right arm cellulitis. PLAN: We should continue her IV antibiotics. If she fails to defervesced, we can consider irrigation and debridement, although I feel no surgical indication for that at this time. cc: MD Chun Will MD
--- NOTE | 2016-09-20 08:32 | PROGRESS NOTE ---
DATE: 09/20/2016 PRESENT ILLNESS: The patient has suffered a cat bite to her right arm. The arm has improved quite a bit. She still, though, however on the dorsum of the hand and the wrist are swollen and tender. MEDICATIONS: The patient is receiving a combination of vancomycin and Zosyn. This is day 4 of treatment with these agents. The patient has received a tetanus immunization, a rabies immunization and infusion of rabies globulin treatment. PHYSICAL EXAMINATION: Vital Signs: Temperature is 98.4 degrees, pulse 63, respirations 18, blood pressure 161/68. General: This is a healthy-appearing, elderly female. She is in no acute distress. Right arm: As mentioned above, there is swelling on the dorsum of the hand and at the wrist. These sites were where immunoglobulin was infused into the tissue and I think, as much as anything, that is causing the patient to have continued swelling and pain. The rest of the right arm is much less swollen. It is not indurated and it is not tender. Lungs: Clear to auscultation. Cardiovascular: Heart rate is regular. Abdomen: Soft and nontender. LAB AND X-RAY: There is no new lab or x-ray on the patient. ASSESSMENT AND PLAN: Patient still has signs of infection in her right arm following the cat bite. I plan to continue her current antimicrobial regimen, which is vancomycin and Zosyn. I have also ordered a complete blood count and a basic metabolic panel for tomorrow morning. COMORBIDITIES: The patient's comorbidities is that she is elderly and she has diabetes. cc: MD Chun Yu MD
--- NOTE | 2016-09-20 10:20 | PROGRESS NOTE ---
DATE: 09/20/2016 SUBJECTIVE: Ms. Keane's hand is a little better. nozzle tender. Still swelling in the dorsum of the right hand. She is elevating it. OBJECTIVE: Vital signs: Temp 98.4 degrees, pulse 60, respirations 18, blood pressure 191/68. HEENT: Pupils are equal and round. Lungs: Clear in all lung junior. Cardiovascular: Regular rhythm and rate without murmur or S3. Abdomen: Soft. Skin: Warm and dry. LABORATORY: Blood sugars 217, 141. ASSESSMENT AND PLAN: 1. Cellulitis, soft tissue infection, right hand and arm, improving. Continue present IV antibiotics. I suspect she will need another 48 hours. No sign of need for surgical intervention at this time. Appreciate Dr. Crowell following. 2. P.o. intake good. 3. Diabetes mellitus type 2. Sugar is under good control. Continue pattern sugars and sliding scale. cc: Chun Anderson MD
[2016-09-20] MEDS: ZOCOR PO SCH ×2 (19:46→22:12)
[2016-09-20] MEDS: TENORMIN PO SCH ×2 (19:46→22:12)
[2016-09-21] MEDS: ZOSYN 3.375 GM/NS 3.375 GM/50 ML IVPB IV SCH ×3 (00:58→05:59)
[2016-09-21] MEDS: VANCOMYCIN 1,400 MG in NS 250 ML IV SCH (03:19)
[2016-09-21] MEDS: HUMALOG SUBQ SCH ×2 (05:59→11:13)
[2016-09-21 06:01] LABS: MANUAL DIFF NEEDED? NO
[2016-09-21 06:23] LABS: BASO% 0.4 % (0.0-0.8); EOS# 0.16 X1000 (0.0-0.7); EOS% 2.1 % (0.0-10.0); HEMATOCRIT 29.7 % (37.0-47.0); HEMOGLOBIN 9.8 g/dL (12.0-16.0); IMM GRAN# 0.04 X1000 (0.0-0.04); IMM GRAN% 0.5 % (0.0-0.5); LYMPH# 1.86 X1000 (1.2-3.4); LYMPH% 23.9 % (20.5-51.1); MCH 30.9 PG (27-31); MCV 93.7 FL (81-99); MONO# 0.82 X1000 (0.11-0.59); MONO% 10.5 % (1.7-9.3); NEUT% 62.6 % (42.2-75.2); PLT 210 X1000 (130-400); RBC 3.17 XMIL (4.2-5.4)
[2016-09-21 06:37] LABS: AGAP 12; BUN 16 mg/dL (8-22); CALCIUM 9.1 mg/dL (8.8-10.2); CHLORIDE 101 mmol/L (98-107); COSMO 278; POTASSIUM 4.1 mmol/L (3.5-5.1); SODIUM 138 mmol/L (136-145); TCO2 25 mmol/L (25-35)
--- NOTE | 2016-09-21 07:27 | PROGRESS NOTE ---
DATE: 09/21/2016 SUBJECTIVE: Arina Painter is a 75-year-old female with a cat bite to her right hand. She is being treated with IV antibiotics. She has no new complaints and states her hand is improving. OBJECTIVE: She still has some mild soreness. Could flex and extend her fingers. She has much less swelling and wrinkling of her skin. Her white count is normal. IMPRESSION: Defervescing cat bite. PLAN: I think she is doing well from an orthopedic standpoint, and I do not feel there is going to be any need for surgical intervention. I am going to be available as needed. Please call me if you have any further questions. She does not need any further followup with me. cc: Chung Crowell MD
[2016-09-21 10:29] VITALS: BP 183/80
--- NOTE | 2016-09-21 10:46 | PROGRESS NOTE ---
DATE: 09/21/2016 PRESENT ILLNESS: The patient had a cat bite to her right arm. This resulted in a lot of swelling, erythema and pain in her arm. She is much better now. In addition to the cat bite itself, she had multiple injections of rabies immunoglobulin into her hand where the cat bite occurred. MEDICATIONS: Patient currently is receiving a combination of vancomycin and Zosyn. This is the 5th day of treatment with these agents. She has already gotten a tetanus immunization and she has 2 more immunizations for rabies. She has also received rabies immunoglobulin. PHYSICAL EXAMINATION: Vital Signs: Temperature is 97.7 degrees, pulse 54, respirations 18, blood pressure 194/66. General: This is a healthy-appearing, elderly female. She is in no acute distress. Extremities: The right arm continues to get less swollen. Also, she is having continued improvement I her range of motion of her wrist and fingers. Lungs: Clear to auscultation. Cardiovascular: Regular heart rate. LAB AND X-RAY: The CBC for today showed a white count of 7790, hemoglobin 9.8, and platelet count 210,000. Creatinine is 0.8. GFR is greater than 60. ASSESSMENT AND PLAN: The patient will be going home on Augmentin. She already has a 6-day supply of Augmentin at home and I electronically sent a prescription for another 8 days of treatment with Augmentin at a dose of 875 mg p.o. every 12 hours to be taken with food to her pharmacy. I plan to see the patient back in my office in 2 weeks. 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 If she is able to return to work physically, then we can write her a return to work slip. COMORBIDITIES: Include she is elderly and a diabetic and unfortunately she got bitten by a stray cat. cc: Moreno Nichole MD MTDD
--- NOTE | 2016-09-21 13:01 | DISCHARGE SUMMARY ---
ADMISSION DATE: 09/16/2016 DISCHARGE DATE: 09/21/2016 Ms. Keane is a 75-year-old who was admitted on 09/17/2016. She had a cat bite in her right forearm, a 75-year-old who was seen in the ER on 09/04/2016. At approximately 1:30 that day she was bit by cat when she was attempting to feed it. Reportedly the cat had not been her pet but it was a stray cat and it comes and goes from time to time. 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 Presented with puncture wound to the top of her right hand as well as 2nd more superficial puncture wound on the ulnar side of her hand. Seen in the emergency room that afternoon just shortly after the bite. Given a prescription for Augmentin. She was given a rabies vaccination as well as immunoglobulin and was discharged. Instructed to come back for a series of rabies vaccinations on day 3, 7 and 14 and day 28. The patient states that since that time she has continued have increased swelling, warmth, redness and pain in the right hand and progressively gotten worse and then started to advance up her arm. Reports joint pain as well and does have some decreased mobility in her fingers, hand and wrist. She had good capillary refill distal to the cat bite. Right radial pulse was 3+. Able to move her fingers and hand and wrist though as previously mentioned she does have some decreased mobility. Had good sensation in the hand as well. The patient was afebrile. Labs drawn in the emergency room, white count was within normal limits, 8500, lactate was 1.3. She was admitted for cellulitis and soft-tissue infection. Concerned about maybe a deeper infection in the fascia. Started on the IV antibiotics and she was put on Zosyn and vancomycin. Infectious Disease was consulted, Dr. Moreno Nichole and he continued those antibiotics. We did do an MRI of the of the hand and had Dr. Crowell, Orthopedic surgeon evaluate and he felt she had right hand cellulitis and did not see any evidence or reason to try and do debridement of the extensor tendon sheath. That could be considered if things did not improve but they did improve. Tenderness went down. She felt much better. We arranged for to get her followup on her rabies vaccination and we will put her on Augmentin 875 mg twice a day for another 2 weeks. She will follow up with Dr. Nichole. cc: Chun Anderson MD
== END 2016-09-21 13:00 | disposition home or self-care (01) ==
LOC: ED 16:19 → SUPCPDRO 21:08 → SUATTDRO 21:08 → 4N 21:08
PROVIDERS: ATTEND Emergency Medicine

== ENCOUNTER 2019-03-14 09:24 | Inpatient (IN) ==
[2019-03-14] MEDS ORDERED: ASPIRIN PO ONE (10:23)
[2019-03-14] MEDS ORDERED: CATAPRES PO ONE (10:34)
[2019-03-14 10:38] LABS: BASO# 0.03 X1000 (0.0-0.2); BASO% 0.5 % (0.0-0.8); EOS# 0.23 X1000 (0.0-0.7); EOS% 3.9 % (0.0-10.0); HEMATOCRIT 34.2 % (37.0-47.0); HEMOGLOBIN 10.9 g/dL (12.0-16.0); IMM GRAN# 0.01 X1000 (0.0-0.04); IMM GRAN% 0.2 % (0.0-0.5); LYMPH# 1.11 X1000 (1.2-3.4); LYMPH% 18.8 % (20.5-51.1); MCH 28.8 PG (27-31); MCHC 31.9 g/dL (33-37); MCV 90.2 FL (81-99); MONO# 0.54 X1000 (0.11-0.59); MONO% 9.2 % (1.7-9.3); MPV 10.3 FL (7.4-10.4); NEUT# 3.97 X1000 (1.4-6.5); NEUT% 67.4 % (42.2-75.2); PLT 183 X1000 (130-400); RBC 3.79 XMIL (4.2-5.4); RDW 14.3 % (11.5-14.5); WBC 5.89 X1000 (4.8-10.8)
[2019-03-14 10:53] LABS: INR 0.95; PROTIME 13.2 Seconds (11.0-16.0)
[2019-03-14 10:54] LABS: PTT 34.6 Seconds (22.3-41.8)
[2019-03-14 11:21] LABS: ALBUMIN 4.1 g/dL (3.5-5.0); CALCIUM 8.8 mg/dL (8.8-10.2); POTASSIUM 4.5 mmol/L (3.5-5.1); TOTAL BILIRUBIN 0.5 mg/dL (0.20-1.00); TOTAL PROTEIN 6.5 g/dL (6.3-8.3)
--- NOTE | 2019-03-14 11:26 | Diag Imaging Result Doc PS360 ---
EXAM: CHEST-2 VIEWS 03/14/2019 HISTORY: SOB TECHNIQUE: PA and lateral chest COMMENT: There is cardiomegaly increased pulmonary vascularity and interstitial opacity bilaterally. There is blunting of the costophrenic angles consistent with pleural effusions. There are no previous studies available for comparison. IMPRESSION: Pulmonary edema and pleural effusions. Cardiomegaly. Electronically signed by Pedro Luis De Leon 03/14/2019 11:24 AM
[2019-03-14] MEDS ORDERED: LASIX IV ONE (11:35)
[2019-03-14] MEDS ORDERED: NITROGLYCERIN TOP ONE (12:15)
[2019-03-14] MEDS ORDERED: NS 1,000 ML IV ONE (13:18)
--- NOTE | 2019-03-14 13:45 | EKG Report ---
Test Performed on : 03/14/2019 10:49:23 AM Test Reason : SOB/ high BP Blood Pressure : / mmHG Vent. Rate : 065 BPM Atrial Rate : 065 BPM P-R Int : 174 ms QRS Dur : 076 ms QT Int : 446 ms P-R-T Axes : 044 062 049 degrees QTc Int : 463 ms Normal sinus rhythm. Normal ECG When compared with ECG of 16-SEP-2016 20:59, No significant change was found Unconfirmed Result
[2019-03-14 14:15] LABS: URINE SOURCE CLEAN CATCH
[2019-03-14 14:17] LABS: BILIRUBIN URINE NEGATIVE (NEGATIVE); BLOOD URINE NEGATIVE (NEGATIVE); COLOR STRAW; GLUCOSE URINE NEGATIVE (NEGATIVE); KETONE URINE NEGATIVE (NEGATIVE); LEUKOCYTES URINE TRACE (NEGATIVE); NITRITE URINE NEGATIVE (NEGATIVE); PROTEIN URINE TRACE mg/dL (NEGATIVE); SP GRAVITY URINE 1.009; TURBIDITY URINE CLEAR (CLEAR); UR EPITHELIAL CELLS <10 /HPF (<10); URINE BACTERIA NEGATIVE /HPF; URINE RBC <10 /HPF (<10); URINE WBC <10 /HPF (<10); UROBILINOGEN URINE NORMAL (NORMAL)
[2019-03-14] MEDS ORDERED: APRESOLINE IV PRN (14:26)
[2019-03-14] MEDS ORDERED: PRINIVIL PO ONE (18:44)
[2019-03-14] MEDS ORDERED: ZOCOR PO SCH (21:00)
[2019-03-14] MEDS ORDERED: LASIX PO SCH (21:00)
[2019-03-14] MEDS ORDERED: KLOR-CON PO SCH (21:00)
[2019-03-14] MEDS ORDERED: GLUCOPHAGE PO SCH (21:00)
--- NOTE | 2019-03-15 04:29 | HISTORY AND PHYSICAL ---
CHIEF COMPLAINT: Shortness of breath. HISTORY OF PRESENT ILLNESS: The patient is a very pleasant 48-year-old female who presented to the emergency department with increased work of breathing, shortness of breath, cough, congestion. Notes that her blood pressure has also been elevated. When she got to the ER, 229/82. Denies any chest pain, palpitations. ALLERGIES: No known drug allergies. MEDICATIONS: Allopurinol, atenolol, Lasix, Glucophage, simvastatin, and potassium chloride. REVIEW OF SYSTEMS: The patient notes she has had increased work of breathing, increased cough, congestion, increased shortness of breath. Denies any chest pain, palpitations. Denies any dizziness, falling, or lightheadedness. Denies dysuria, urinary frequency, urgency, constipation, melena, hematochezia. Denies skin rashes, weight loss or weight gain. PAST MEDICAL HISTORY: Significant for hypertension, hyperlipidemia, diabetes. She has had a hysterectomy. FAMILY HISTORY: Noncontributory. SOCIAL HISTORY: She does not smoke or drink. PHYSICAL EXAMINATION: VITAL SIGNS: Reviewed. Blood pressure is 220 initially in the ER, currently 150, temperature 97.9 degrees, pulse 62, respiratory 20, saturation 95% on room air. GENERAL: Patient is very pleasant. She is lying in the bed. She is in no current respiratory distress. HEENT: Normocephalic. NECK: Supple. CARDIOVASCULAR: Regular rate. No murmurs. CHEST: Clear and unlabored. ABDOMEN: Soft, nondistended, nontender. EXTREMITIES: Moves all extremities. NEUROLOGIC: No changes. LABORATORIES: Reviewed. ASSESSMENT: 1. Hypertension. 2. Pleural effusion with pulmonary edema. 3. Gout. PLAN: We are going to admit patient to the hospital, control her blood sugars, blood pressures. Follow her effusion. Recheck chest x-ray in the a.m. Further orders. cc: Jed Phillips MD
[2019-03-15 08:08] VITALS: BP 163/58
--- NOTE | 2019-03-16 06:51 | DISCHARGE SUMMARY ---
ADMISSION DATE: 03/14/2019 DISCHARGE DATE: 03/15/2019 DISCHARGE DIAGNOSES: 1. Pleural effusion, improved. 2. Pulmonary edema, improved. 3. Hypertension. 4. Gout. 5. Generalized weakness, resolved. CONSULTATIONS: None. PROCEDURES: None. BRIEF HOSPITAL COURSE: The patient is a 78-year-old female who presented to the hospital. Treated in the usual fashion, placed on Lasix. She continued to improve. On discharge, she notes that she is feeling back to her usual self. She has no new complaints and is asking to go home. DISPOSITION: The patient will be discharged home. She will follow up outpatient with treatment facility of choice. No changes were made on her chronic home medications, diet, or activity. Greater than 30 minutes were spent on discharge. cc: Jed Phillips MD
--- NOTE | 2019-03-27 17:48 | PROVIDER DOCUMENTATION ---
This chart was entered by Anya Nichole Scribe, acting as scribe for Edgar Colunga MD. HPI-General Adult - General Chief Complaint: B/P Problems Stated Complaint: SOB Time Seen by Provider: 03/14/19 09:35 Source: patient Allergies/Adverse Reactions: Patient Allergies Allergy/AdvReac Type Severity Reaction Status Date / Time No Known Allergies Allergy Verified 03/20/19 23:25 Home Medications: Home Medication List Medication Instructions Recorded Confirmed Last Taken Type Furosemide [Lasix] 20 mg PO QHS 03/26/14 03/20/19 12/13/18 History Metformin [Glucophage] 500 mg PO QHS 03/26/14 03/20/19 12/13/18 History Simvastatin 40 mg PO QHS 03/26/14 03/20/19 12/13/18 History Potassium Chloride 20 meq PO QHS 09/16/16 03/20/19 12/13/18 History Metoprolol Succinate [Toprol Xl] 200 mg PO DAILY 03/14/19 03/20/19 Unknown History - History of Present Illness -Gen Adult Nature of Presenting Problems: Pt is a 78 yom who presents to the ED w/ a CC of SOB. Pt reports to the ED with increased BP(229/82). Pt states that her symptoms began this morning around 8am. Pt denies any pain. Pt states that she is a borderline diabetic and takes metformin. Pt denies any nausea, fever or abd pain. Pt states that she had a stress test performed last Saturday @ [facility] [place]. Location of Pain/Injury: reports: none Pain Radiation: reports: no radiation Quality of Pain: reports: none Onset/Duration: reports: this morning Timing: reports: still present Context/Activities at Onset: reports: none Modifying Factors: improves with: nothing Associated Symptoms: reports: shortness of breath Similar Symptoms Previously?: Yes Recently seen or treated by another doctor?: Yes Review of Systems - Adult - REVIEW OF SYSTEMS - ADULT Constitutional: reports: see HPI Eyes: reports: no symptoms reported Ears, Nose, Mouth & Throat: reports: no symptoms reported Cardiovascular: reports: no symptoms reported Respiratory: reports: see HPI, shortness of breath, wheezing Gastrointestinal: reports: no symptoms reported Genitourinary: reports: no symptoms reported Musculoskeletal: reports: no symptoms reported Integumentary: reports: no symptoms reported Neurological: reports: no symptoms reported Psychiatric: reports: no symptoms reported Endocrine: reports: no symptoms reported Hematologic/Lymphatic: reports: no symptoms reported Allergic/Immunologic: reports: no symptoms reported All Other Systems: Reviewed and Negative Past History - Adult - PAST MEDICAL HISTORY-ADULT Review of Records: reports: Old Records Reviewed, Nursing Assessment Review, Medications Reviewed, Social history reviewed & non-contributory. Major Childhood Illnesses: reports: denies history Cardiovascular: reports: HTN, hyperlipidemia Respiratory: reports: denies history Gastrointestinal: reports: denies history Obstetrical/Gynecological: reports: denies history Genitourinary: reports: denies history Musculoskeletal: reports: denies history Neurological: reports: denies history Psychiatric: reports: denies history Endocrine/Immune: reports: Diabetes Other Conditions: reports: denies history - PRIOR SURGERIES/PROCEDURES Surgical/Procedure History: reports: hysterectomy - PRIOR HOSPITALIZATIONS Prior Hospitalizations: reports: for other non-related - IMMUNIZATION STATUS Childhood Immunizations: See Nurse Assessment Flu Vaccine: See Nurse Assessment - FAMILY HISTORY Family History: reviewed, not pertinent - SOCIAL HISTORY Smoking: non-smoker Substance Use: denies Living Situation: family Physical Exam-General - PHYSICAL EXAM-ADULT Initial Vital Signs Reviewed: Yes - CONSTITUTIONAL General Appearance: alert, no apparent distress - EYES Eyes: PERRL/EOMI, pink conjunctivae - HEAD, EARS, NOSE, MOUTH & THROAT HENMT: normocephalic/atraumatic, moist mucous membranes - NECK Neck: non-tender, full range of motion, supple - RESPIRATORY Respiratory: chest non-tender, wheezing - CARDIOVASCULAR Cardiovascular: normal peripheral pulses, regular rate, rhythm - GASTROINTESTINAL (ABDOMEN) Abdominal Exam: normal bowel sounds, non tender, soft - LYMPHATIC Lymphatic: no adenopathy - MUSCULOSKELETAL Back Exam: normal inspection, no CVA tenderness, no vertebral tenderness Extremity: normal range of motion, non-tender, normal inspection - SKIN Integumentary: normal color, normal turgor, warm/dry - NEUROLOGIC Neurologic: grossly normal - PSYCHIATRIC Psych/Mental Status: normal mood/affect, normal thought content, normal thought process, oriented x 3 Progress - PLAN OF CARE/RESULTS Progress/Plan/Lab Results: Vital Signs - 8 hr 03/14/19 09:32 Temperature 97.9 F Pulse Rate 62 Respiratory Rate 24 Blood Pressure 229/082 O2 Sat by Pulse Oximetry 95 Laboratory Results - last 24 hr 03/14/19 03/14/19 10:04 10:04 WBC 5.89 RBC 3.79 L Hgb 10.9 L Hct 34.2 L MCV 90.2 MCH 28.8 MCHC 31.9 L RDW Std Deviation 14.3 Plt Count 183 MPV 10.3 Immature Gran % (Auto) 0.2 Neut % (Auto) 67.4 Lymph % (Auto) 18.8 L [place] % (Auto) 9.2 Eos % (Auto) 3.9 Baso % (Auto) 0.5 Immature Gran # (Auto) 0.01 Neut # (Auto) 3.97 Lymph # (Auto) 1.11 L [place] # (Auto) 0.54 Eos # (Auto) 0.23 Baso # (Auto) 0.03 PT 13.2 INR 0.95 PTT (Actin FS) 34.6 Orders Category Date Time Status Cardiac Monitoring DIRECTED Care 03/14/19 10:23 Active Oxygen Therapy- ED Nursing DIRECTED Care 03/14/19 10:23 Active Saline Loc NOW Care 03/14/19 10:23 Active CHEST-2 VIEWS [RAD] Stat Exams 03/14/19 10:23 Ordered CBC WITH ELECTRONIC DIFF [HEME] Stat Lab 03/14/19 10:04 Completed CK PROFILE [SP CHEM] Stat Lab 03/14/19 10:04 Received COMPREHENSIVE METABOLIC PANEL [CHEM] Stat Lab 03/14/19 10:04 Received PRO B-NATRIURETIC PEPTIDE Stat Lab 03/14/19 10:04 Received PROTIME WITH INR [COAG] Stat Lab 03/14/19 10:04 Completed PTT [COAG] Stat Lab 03/14/19 10:04 Completed TROPONIN T Stat Lab 03/14/19 10:04 Received Aspirin Med 03/14/19 10:23 Discontinued 325 mg PO NOW ONE Clonidine [Catapres] Med 03/14/19 10:34 Discontinued 0.1 mg PO NOW ONE CP/SOB/Palp >45 yrs of Age Stat Oth 03/14/19 10:23 Ordered EKG [EKG] Stat Ther 03/14/19 10:23 Ordered Result Diagrams: 03/14/19 10:04 03/14/19 10:04 - REASSESSMENT Reassessment #1 Time Reassessed: 11:46 Status: unchanged Reassessment Comment: discussed fluid on lungs - EKG 1 Time of EKG reading by physician:: 10:50 EKG Read and Signed by:: Edgar Colunga EKG Interpretation (*Must complete 3 of following elements*): Normal (rate 65 nsr) - CONSULTS/PCP/HOSPITALIST Notification #1 *Consult/PCP/Hospitalist*: Hospitalist Time Discussed: 12:05 Reason/Comments: Discuss admission for pulmonary edema Consult Disposition: Admit Departure - Departure Date of Disposition Decision: 03/14/19 Time of Disposition Decision: 12:06 DIAGNOSIS: Pulmonary edema, Hypertension Disposition: ADMITTED INPATIENT 09 Certified Medical Emergency: Emergent Condition: Good - Critical Care Note This patient required my direct & personal management of CC.: No Attestation - Physician/ SANJANA Attestation Patient care was provided by Advanced Practice Provider:: No The physician spent face to face time with patient:: Yes Advanced Practice Provider documentation review:: Supervising physician onsite and consulted in the evaluation and care of this patient. The physician did have a face to face encounter with the patient. This chart was documented by the indicated scribe, (Anya Nichole Scribe) and accurately reflects the services I performed and decisions made by me, Edgar Colunga MD, as attested by the provider's signature.
== END 2019-03-15 11:15 | disposition home or self-care (01) | DRG 189 ==
LOC: P.ED 09:24 → P.MEDSURG 13:08 → SUATTDRO 13:08
PROVIDERS: ADMIT Family Medicine; ATTEND Family Medicine